=== PATIENT | male | born 1990 | race Caucasian/White ===

== ENCOUNTER 2019-06-27 11:54 | Emergency (ER) | payer BC, MEDICAID ==
[~2019-06-27] VITALS: Ht 188 cm; Wt 118.2 kg
[~2019-06-27 11:54] MED LIST: NO HOME MEDS
[2019-06-27] MEDS ORDERED: normal saline 1000ML IV soln IVB STA (12:01)
[2019-06-27] MEDS ORDERED: diphenhydrAMINE 50 mg/ml inj IV ONE (12:05)
[2019-06-27] MEDS ORDERED: famotidine/PF 10 mg/ml inj IV ONE (12:05)
[2019-06-27] MEDS ORDERED: methylPREDNISolone sod succ 125mg/2ml vial IV ONE (12:05)
[2019-06-27] MEDS ORDERED: epiNEPHrine 1 mg/ml inj SQ ONE (12:05)
[2019-06-27 13:23] VITALS: BP 115/63
== END 2019-06-27 13:51 | disposition home or self-care (01) ==
LOC: ER 11:55
DX: T78.2XXA Anaphylactic shock, unspecified, initial encounter (principal); Z87.891 Personal history of nicotine dependence; X58.XXXA Exposure to other specified factors, initial encounter; Y93.89 Activity, other specified; Y92.89 Other specified places as the place of occurrence of the external cause; Y99.8 Other external cause status
CPT/HCPCS: 71045; 96372; 96374; 96375; 99291; J0171; J1200; J2930; J3490; J7030

== ENCOUNTER 2023-11-18 20:31 | Emergency (ER) | payer BC, MEDICAID ==
[~2023-11-18] VITALS: Ht 185.4 cm; Wt 142.4 kg
[2023-11-18] MEDS ORDERED: PRED20TA PO (22:06)
[2023-11-18] MEDS: dexamethasone sod phosphate 10mg/ml inj PO STA (22:12)
[2023-11-18 22:19] VITALS: BP 131/89; PULSE 87; RESP 16; TEMP 98.5; O2SAT 97
== END 2023-11-18 22:21 | disposition home or self-care (01) ==
LOC: ER 20:32
DX: R11.0 Nausea (principal); Z77.098 Contact with and (suspected) exposure to other hazardous, chiefly nonmedicinal, chemicals; R05.9 Cough, unspecified; Z91.011 Allergy to milk products
CPT/HCPCS: 71045; 99283; J1100

== ENCOUNTER 2023-12-25 06:36 | Emergency (ER) | payer BC, MEDICAID, OTHER ==
[~2023-12-25] VITALS: Ht 185.4 cm; Wt 136.3 kg
[2023-12-25 06:58] VITALS: TEMP 97.9
[2023-12-25 07:09] LABS: BASOPHILS # (AUTO) 0.1 X10'3 (0-0.2); BASOPHILS % (AUTO) 1.2 % (0-1); EOSINOPHILS # (AUTO) 0.2 X10'3 (0-0.9); EOSINOPHILS % (AUTO) 3.3 % (0-6); HEMATOCRIT 46.7 % (42.0-52.0); HEMOGLOBIN 15.9 g/dl (14.0-17.9); LYMPHOCYTES # (AUTO) 2.2 X10'3 (1.1-4.8); LYMPHOCYTES % (AUTO) 32.2 % (21-51); MEAN CORPUSCULAR HEMOGLOBIN 29.7 PG (27.0-31.0); MEAN CORPUSCULAR VOLUME 87.3 FL (78-98); MONOCYTES # (AUTO) 0.5 X10'3 (0-0.9); MONOCYTES % (AUTO) 7.1 % (2-12); NEUTROPHILS # (AUTO) 3.8 X10'3 (1.8-7.7); NEUTROPHILS % (AUTO) 56.2 % (42-75); PLATELET COUNT 234 X10'3 (140-440); RED BLOOD COUNT 5.35 X10'6 (4.70-6.10); RED CELL DISTRIBUTION WIDTH 14.1 % (11.5-14.5); WHITE BLOOD COUNT 6.8 X10'3 (4.5-11.0)
[2023-12-25] MEDS: morphine 4 MG/ML inj SYRINge IV ONE (07:24)
[2023-12-25 07:27] LABS: ALANINE AMINOTRANSFERASE 62 U/L (12-78); ALBUMIN 3.7 G/DL (3.4-5.0); ALKALINE PHOSPHATASE 120 IU/L (46-116); ANION GAP 3 (8-16); ASPARTATE AMINO TRANSFERASE 31 U/L (10-37); BILIRUBIN,TOTAL 0.6 MG/DL (0.1-1.0); BLOOD UREA NITROGEN 10 MG/DL (7-18); BUN/CREATININE RATIO 11.4 (10.0-20.0); CALCIUM 8.9 MG/DL (8.5-10.1); CHLORIDE 106 MMOL/L (99-107); CREATININE 0.88 MG/DL (0.60-1.10); GLUCOSE 126 MG/DL (70-104); SODIUM 137 MMOL/L (135-145); TOTAL CARBON DIOXIDE 28.3 MMOL/L (24-32); TOTAL PROTEIN 7.4 G/DL (6.4-8.2); eCRCL 132 ML/MIN; eGFR > 90 ML/MIN
[2023-12-25 07:30] LABS: AMYLASE 29 U/L (25-115); BILIRUBIN,DIRECT 0.2 MG/DL (0-0.3); LIPASE 25 U/L (16-77)
[2023-12-25] MEDS ORDERED: iohexol 300mg/ml 100ml inj. ONE (07:32)
[2023-12-25 07:40] LABS: ETHANOL < 10 MG/DL (<10)
[2023-12-25] MEDS: cyclobenzaprine 10mg tablet PO ONE (08:57)
[2023-12-25] MEDS: ketorolac trometh 15mg/ml vial 15 MG/ML ML IV ONE (08:58)
[2023-12-25] MEDS ORDERED: NAPR-56 PO (10:34)
[2023-12-25] MEDS ORDERED: CYCL-1 PO (10:34)
[2023-12-25 10:36] LABS: BILIRUBIN,URINE NEGATIVE (Neg); CLARITY,URINE CLEAR (Clear); COLOR,URINE YELLOW (Yellow); GLUCOSE, URINE NEGATIVE (Neg); KETONES,URINE NEGATIVE (Neg); LEUKOCYTE ESTERASE ,URINE NEGATIVE (Neg); NITRITES, URINE NEGATIVE (Neg); OCCULT BLOOD,URINE NEGATIVE (Neg); PROTEIN,URINE NEGATIVE (Neg)
[2023-12-25 10:42] LABS: UA COLLECTION TYPE CLN CATCH MIDSTREAM
[2023-12-25 10:48] LABS: URINE AMPHETAMINE SCREEN NEGATIVE (Neg); URINE BARBITUATE SCREEN NEGATIVE (Neg); URINE BENZODIAZEPINES SCREEN NEGATIVE (Neg); URINE CANNABINOID SCREEN NEGATIVE (Neg); URINE COCAINE SCREEN NEGATIVE (Neg); URINE METHADONE SCREEN NEGATIVE (Neg); URINE OPIATE SCREEN POSITIVE (Neg); URINE PHENCYCLIDINE SCREEN NEGATIVE (Neg)
[2023-12-25 11:07] VITALS: BP 127/87; PULSE 96; RESP 14; O2SAT 98
== END 2023-12-25 11:10 | disposition home or self-care (01) ==
LOC: ER 06:37
DX: S40.012A Contusion of left shoulder, initial encounter (principal); S60.812A Abrasion of left wrist, initial encounter; M62.838 Other muscle spasm; Z91.011 Allergy to milk products; Z90.49 Acquired absence of other specified parts of digestive tract; Z79.899 Other long term (current) drug therapy; Z79.1 Long term (current) use of non-steroidal anti-inflammatories (NSAID); V89.2XXA Person injured in unspecified motor-vehicle accident, traffic, initial encounter; Y92.410 Unspecified street and highway as the place of occurrence of the external cause; Y93.89 Activity, other specified; Y92.89 Other specified places as the place of occurrence of the external cause; Y99.8 Other external cause status
CPT/HCPCS: 36415; 70450; 71260; 72125; 73020; 73130; 74177; 80048; 80076; 80305; 80320; 81003; 82150; 83690; 84484; 85025; 93005; 96374; 96375; 99291; J1885; J2270; Q9967